=== PATIENT | female | born 1970 | race American Indian/Alaskan Native ===

== ENCOUNTER 2018-04-19 10:53 | Emergency (ER) | payer SELFPAY ==
[2018-04-19 12:09] LABS: Basophils # (Auto) 0.1 K/mm3 (0.0-0.1); Basophils % (Auto) 1.3 % (0.0-1.8); Eosinophils # (Auto) 0.2 K/mm3 (0.0-0.4); Eosinophils % (Auto) 2.3 % (0.0-4.3); Hemoglobin 14.3 gm/dl (10.1-14.3); Lymphocytes # (Auto) 2.5 K/mm3 (1.2-5.4); Lymphocytes % (Auto) 30.6 % (13.4-35.0); Mean Corpuscular HGB Conc 34 % (30-34); Mean Corpuscular Hemoglobin 30 pg (28-32); Mean Corpuscular Volume 89 fl (79-97); Monocytes # (Auto) 0.7 K/mm3 (0.0-0.8); Monocytes % (Auto) 8.4 % (0.0-7.3); Platelet Count 222 K/mm3 (140-440); Red Blood Count 4.75 M/mm3 (3.65-5.03); Red Cell Distribution Width 14.8 % (13.2-15.2)
[2018-04-19 12:22] LABS: Alanine Aminotransferase 10 units/L (7-56); Albumin 3.7 g/dL (3.9-5); BUN/Creatinine Ratio 23; Blood Urea Nitrogen 27 mg/dL (7-17); Calcium 9.4 mg/dL (8.4-10.2); Hemolysis Index 2
[2018-04-19 17:42] LABS: Bacteria,Urine 1+ /HPF (Negative); Bilirubin,Urine NEG (Negative); Blood,Urine NEG (Negative); Color,Urine Yellow (Yellow); HCG Qualitative,Urine Negative (Negative); Mucus,Urine 1+ /HPF; Urobilinogen,Urine < 2.0 mg/dL (<2.0)
[2018-04-19] MEDS ORDERED: HumuLIN R IV ONE ×2 (18:57→19:51)
[2018-04-19] MEDS ORDERED: NACL 0.9% 1000 ML 1,000 ML IV ONE (18:57)
[2018-04-19] MEDS ORDERED: ZOFRAN IV ONE (19:35)
[2018-04-19] MEDS ORDERED: SUBLIMAZE IV ONE (19:35)
--- NOTE | 2018-04-19 20:48 | Emergency Department Report ---
HPI - General Chief Complaint: Abdominal Pain Time Seen by Provider: 04/19/18 17:54 - HPI HPI: The patient is a 47-year-old female who presents for evaluation of abdominal pain. The patient has a history of diabetes, fibroids, ovarian cysts, a chronic abdominal pain. She reports recurrence of mid and bilateral lower abdominal pain 2 days ago, 10/10 in severity, sharp in quality, radiating to the back. She also reports nausea. The patient denies trauma to the abdomen or back, fever, chills, night sweats, paresthesias or or motor weakness in the legs , diarrhea, blood in the stool, dark tarry stool, dysuria, hematuria, flank pain , genital discharge, inability to pass flatus. ED Past Medical Hx - Past Medical History Previous Medical History?: Yes Hx Hypertension: Yes Hx Heart Attack/AMI: Yes (x 2 in January 2018) Hx Diabetes: Yes Hx GERD: Yes Additional medical history: uterine fibroids and cysts on ovary - Surgical History Past Surgical History?: Yes Additional Surgical History: toe amputation x 6 for neuropathy, x 3, coronary stent x 1 in January 2018 - Social History Smoking Status: Current Every Day Smoker Substance Use Type: Marijuana - Medications Home Medications: Home Medications Medication Instructions Recorded Confirmed Last Taken Type Ondansetron [Zofran TAB] 4 mg PO Q8HR PRN #20 tablet 04/19/18 Unknown Rx traMADol [Ultram 50 MG tab] 50 mg PO Q6HR PRN #15 tablet 04/19/18 Unknown Rx ED Review of Systems ROS: Stated complaint: ABDOMINAL PAIN Other details as noted in HPI Constitutional: denies: fever ENT: denies: throat or neck pain Respiratory: denies: cough, shortness of breath Cardiovascular: denies: chest pain Endocrine: denies unexplained weight loss or gain Gastrointestinal: reports abdominal pain, nausea Genitourinary: denies: dysuria Musculoskeletal: denies: leg swelling Skin: denies: rash Neurological: denies: headache Hematological/Lymphatic: denies: easy bleeding or easy bruising Psych: denies sadness or hopelessness Physical Exam - Physical Exam Vital Signs: Vital Signs 04/19/18 04/19/18 04/19/18 10:55 17:16 17:25 Temperature 97.8 F 98.5 F Pulse Rate 102 H 83 Respiratory 18 Rate Blood Pressure 183/99 Blood Pressure 166/90 [Left] O2 Sat by Pulse 98 98 100 Oximetry 04/19/18 04/19/18 04/19/18 17:30 17:46 18:00 Temperature Pulse Rate Respiratory Rate Blood Pressure 166/90 166/90 180/98 Blood Pressure [Left] O2 Sat by Pulse 99 99 98 Oximetry 04/19/18 04/19/18 04/19/18 18:16 18:30 18:46 Temperature Pulse Rate Respiratory Rate Blood Pressure 180/98 180/98 180/98 Blood Pressure [Left] O2 Sat by Pulse 99 98 99 Oximetry 04/19/18 20:11 Temperature Pulse Rate Respiratory 16 Rate Blood Pressure Blood Pressure [Left] O2 Sat by Pulse Oximetry Physical Exam: General: well-nourished, well-developed, no acute distress Head: Normocephalic, atraumatic Eyes: normal sclera ENT: Mucous membranes are pale and dry Neck: No neck stiffness, no cervical adenopathy Respiratory: Breath sounds equal bilaterally, no wheezing, rales, or rhonchi Cardio: S1 and S2 present, no murmurs, rubs, gallops, capillary refill is delayed Abdomen: Normoactive bowel sounds, soft abdomen, suprapubic and left lower quadrant tenderness to palpation present, no rigidity, no guarding or rebound tenderness Musc: No pitting edema Skin: No rash Neuro: no facial drooping, normal speech Psych: Normal affect ED Course Vital Signs 04/19/18 04/19/18 04/19/18 10:55 17:16 17:25 Temperature 97.8 F 98.5 F Pulse Rate 102 H 83 Respiratory 18 Rate Blood Pressure 183/99 Blood Pressure 166/90 [Left] O2 Sat by Pulse 98 98 100 Oximetry 04/19/18 04/19/18 04/19/18 17:30 17:46 18:00 Temperature Pulse Rate Respiratory Rate Blood Pressure 166/90 166/90 180/98 Blood Pressure [Left] O2 Sat by Pulse 99 99 98 Oximetry 04/19/18 04/19/18 04/19/18 18:16 18:30 18:46 Temperature Pulse Rate Respiratory Rate Blood Pressure 180/98 180/98 180/98 Blood Pressure [Left] O2 Sat by Pulse 99 98 99 Oximetry 04/19/18 20:11 Temperature Pulse Rate Respiratory 16 Rate Blood Pressure Blood Pressure [Left] O2 Sat by Pulse Oximetry ED Medical Decision Making - Lab Data Result diagrams: 04/19/18 11:40 04/19/18 11:40 - Medical Decision Making The patient was seen and examined by myself. The patient is placed on a cardiac specialist and continuous pulse ox. On initial evaluation, the patient was found to be in no distress. Evaluation orders are placed. IV access is established and the patient is given 1 L normal saline fluid bolus and Zofran for nausea, and IV analgesic for pain Lab results revealed elevated glucose at 380, with normal anion gap and bicarbonate, not consistent with DKA, and otherwise labs were un-revealing including WBC, hemoglobin, hematocrit, renal function, LFTs, lipase, neg preg, and urinalysis. The patient is given IV insulin for treatment of her hyperglycemia. The patient was reevaluated and reported that their symptoms were markedly improved. The patient is stable for discharge with outpatient follow-up. The patient is given follow-up and return instructions. The patient expressed understanding and agreed with the plan. The patient is discharged in stable condition. Critical care attestation.: If time is entered above; I have spent that time in minutes in the direct care of this critically ill patient, excluding procedure time. ED Disposition Clinical Impression: Acute hyperglycemia, Dehydration, Abdominal pain, acute, periumbilical Disposition: DC-01 TO HOME OR SELFCARE Is pt being admited?: No Does the pt Need Aspirin: No Condition: Stable Instructions: Abdominal Pain (ED), Diabetic Hyperglycemia (ED), Uterine Fibroids (ED), Ovarian Cyst (ED) Referrals: PRIMARY CARE [Primary Care Provider] - 3-5 Days [facility] [Provider Group] - 3-5 Days Time of Disposition: 20:43
[2018-04-19] MEDS ORDERED: NORCO 5/325 PO ONE (21:00)
[2018-04-19] MEDS ORDERED: NORMODYNE IV ONE (21:04)
[2018-04-19 21:10] VITALS: BP 164/70
== END 2018-04-19 21:38 | disposition home or self-care (01) ==
LOC: ED 10:53
DX: R10.33 Periumbilical pain (principal); E86.0 Dehydration; I10 Essential (primary) hypertension; I25.2 Old myocardial infarction; K21.9 Gastro-esophageal reflux disease without esophagitis; D25.9 Leiomyoma of uterus, unspecified; F17.200 Nicotine dependence, unspecified, uncomplicated; F12.10 Cannabis abuse, uncomplicated; E11.65 Type 2 diabetes mellitus with hyperglycemia; Z88.8 Allergy status to other drugs, medicaments and biological substances
CPT/HCPCS: 36415; 80053; 81001; 81025; 82962; 83690; 85025; 96361; 96374; 96375; 99284; J2405; J3010; J7030; J1815